=== PATIENT | male | born 1960 | race Caucasian/White ===

== ENCOUNTER 2020-03-25 18:19 | Inpatient (IN) | payer OTHER ==
[~2020-03-25] VITALS: Ht 190.5 cm; Wt 68.5 kg
[~2020-03-25 18:19] MED LIST: ACAMPROSATE CA333 MG; ATIVAN1 M1; FLUNISOLIDE25 ML; FOLIC ACID1 MG; GABAPENTIN300 MG; QUETIAPINE FUM200 MG; SEROQUEL400 MG; SERTRALINE HCL100 MG; ZYRTEC10 M3
== END 2020-03-30 12:47 | disposition home or self-care (01) | DRG 638 ==
LOC: ER 18:19 → MEDI 03-26 12:11
PROVIDERS: ADMIT Internal Medicine; ATTEND Internal Medicine
DX: E11.10 Type 2 diabetes mellitus with ketoacidosis without coma (principal); E87.1 Hypo-osmolality and hyponatremia; N17.9 Acute kidney failure, unspecified; K86.1 Other chronic pancreatitis; E87.2 Acidosis; Z79.4 Long term (current) use of insulin; F10.20 Alcohol dependence, uncomplicated; D69.6 Thrombocytopenia, unspecified; E03.9 Hypothyroidism, unspecified; E86.0 Dehydration; K70.0 Alcoholic fatty liver; Z20.828 Contact with and (suspected) exposure to other viral communicable diseases; E87.6 Hypokalemia; K86.89 Other specified diseases of pancreas

== ENCOUNTER 2023-06-19 18:49 | Emergency (ER) | payer OTHER ==
[~2023-06-19] VITALS: Ht 188 cm; Wt 86.2 kg
[2023-06-20 00:17] LABS: HEMATOCRIT 40.9 % (39.0-48.0); HEMOGLOBIN 13.5 g/dL (13-16.00); MEAN CELL VOLUME 95.2 fL (80.0-100.00); MEAN CORPUSCULAR HEMOGLOBIN 31.3 pg (27.00-32.0); MEAN CORPUSCULAR HGB CONC 32.9 g/dl (32.0-36.0); PLATELET COUNT 195 K/uL (150-450)
[2023-06-20 00:33] LABS: ALBUMIN 3.8 gm/dL (3.4-5.0); BILIRUBIN TOTAL 0.61 mg/dL (0.3-1.2); CALCIUM 8.6 mg/dL (8.5-10.1); CREATININE SERUM 0.88 mg/dL (0.70-1.30); GFR 88.33; GLOBULINA 3.2 G/DL (2.4-3.5); POTASSIUM 3.94 mEq/L (3.5-5.1)
[2023-06-20 18:06] LABS: INR 0.99; PARTIAL THROMBOPLASTIN TIME 29.2 SECONDS (22.0-34.0); PROTHROMBIN TIME 10.4 SECONDS (9.0-11.5)
== END 2023-06-20 19:01 | disposition designated cancer center or children's hospital (05) ==
LOC: ER 18:49
PROVIDERS: Emergency Medicine; General Practice
DX: S72.092A Other fracture of head and neck of left femur, initial encounter for closed fracture (principal); X58.XXXA Exposure to other specified factors, initial encounter; Y93.9 Activity, unspecified; Y92.9 Unspecified place or not applicable; Y99.9 Unspecified external cause status; F10.129 Alcohol abuse with intoxication, unspecified; Z91.013 Allergy to seafood
CPT/HCPCS: 36415; 71045; 73502; 73560; 96365; 96372; 99285; J1885; J2270

== ENCOUNTER 2024-11-05 09:51 | Inpatient (IN) | payer OTHER ==
[~2024-11-05] VITALS: Ht 182.9 cm; Wt 77.1 kg
[~2024-11-05 09:51] MED LIST changes: +ADULT LOW DOSE81 M1 PO; +CREON DR 36,001 EACH; +FOLIC ACID0.8 M1; +GABAPENTIN800 M1 PO; +HYDROXYZIN10 MG/5 ML PO; +INSULIN SYRING1 EA29; +LANTUS SOL100 UNIT/1; +THIAMINE HCL25 GM; +ZOLOFT100 MG PO
[2024-11-05] MEDS ORDERED: PIPERACILLIN/TAZOBACTAM SODIUM 2.25 GM VIAL IV ONE (10:15)
[2024-11-05] MEDS ORDERED: 0.9 % SODIUM CHLORIDE 1,000 ML IV ONE (10:15)
[2024-11-05] MEDS ORDERED: NOREPINEPHRINE BITARTRATE 1 MG/ML AMPUL IV ONE (10:15)
[2024-11-05 10:17] LABS: ABG pCO2 20.8 mmHg (35-45); BASE EXCESS -30.7 mmol/l; BICARBONATE 3.2 mmol/l (23-25); SaO2 99.9 %; Tco2 3.8 mmol/l
[2024-11-05 10:23] LABS: ABG PO2 772.1 mmHg (80-100); allen test SATISFACTORY; o2 100 %; puncture site BRADIAL LEFT
[2024-11-05 10:24] LABS: ABG PH 6.806 (7.35-7.45)
--- NOTE | 2024-11-05 10:34 | NUR ---
PACIENTE TRAIDO EN AMBULANCIA EL MISMO EN ESTADO COMATOSO CON RESPUESTA A ESTIMULOS DE DOLOR. PARAMEDICOS REFIEREN QUE EL MISMO FUE ENCONTRADO EN DASH CASA EN ESTADO INFRAHUMANO REFIEREN QUE FUE VECINA QUIEN LLAMO A LOS PARAMEDICOS. SE OBSERVA EL MISMO CON TAQUICARD Y HIPOTENSO Y CON DIFICULTAD PARA RESPIRAR. SE PASA DE INMEDIATO A AREA DE CRITICO SE CONECTA A MONITOR CARDIACO Y OXIMETRIA DE PULSO. SE INTENTA CANALIZAR EN VARIOS OCASIONES Y NO SE LOGRA. PERSONAL DE ANESTECIA REAL ENTUBA PACIENTE A LAS 9:50AM CON TUBO 8.0 Y ES FIJADO EN 24 EN COMISURA LABIAL. 10:00AM: DR. LEGGETT ES CONSULTA PARA LINEA CENTRA EL MISMO COLOCA LINEA CENTRA FEMORAL LADO DERECHO. SE ADMINITRA MEDICAMENTOS ANT ORDEN VERBAL DE DR. URENA. PERSONAL DE TERAPIA TYLER PACIENTE CONECTA A VENTILADOR (PARAMETROS EN ORDEN). SE MANJINDER MUESTRAS DE LABORATORIO ORDENAS. SE INSERTA KO # [phone] BAJO MEDIDAS ESTERIL NO SE OBSERVA RETORNO URINARIO. PENDIENTEA A PLACA Y ESTUDIO
[2024-11-05 10:36] LABS: HEMATOCRIT 42.8 % (39.0-48.0); MEAN CORPUSCULAR HEMOGLOBIN 31.8 pg (27.00-32.0); MEAN CORPUSCULAR HGB CONC 30.3 g/dl (32.0-36.0); PLATELET COUNT 352 K/uL (150-450); RED BLOOD COUNT 4.08 M/uL (4.00-6.00); RED CELL DISTRIBUTION WIDTH 14.2 % (11.5-14.5)
--- NOTE | 2024-11-05 10:40 | NUR ---
AL MOMENTO DEL TRIAGE PACIENTE SIN IDENTIFICACION Y SIN CAPAZ DE CHAR HISTORIAL
[2024-11-05] MEDS ORDERED: MIDAZOLAM HCL 50 MG in 0.9 % SODIUM CHLORIDE 50 ML IV SCH ×2 (11:00→17:45)
[2024-11-05] MEDS ORDERED: SODIUM BICARBONATE 1 MEQ/ML DISP.SYRIN 50ML IV ONE (11:00)
--- NOTE | 2024-11-05 11:01 | NUR ---
DORA DE QUERRELA [phone] [facility] [id number]
[2024-11-05 11:11] LABS: BILIRUBIN TOTAL 0.59 mg/dL (0.3-1.2); CREATININE SERUM 3.84 mg/dL (0.70-1.30); GFR 16.08; GLOBULINA 4.4 G/DL (2.4-3.5); MAGNESIUM 2.7 mg/dL (1.8-2.4); TOTAL PROTEIN 7.4 gm/dL (6.4-8.2)
[2024-11-05 11:17] LABS: INR 1.89
[2024-11-05 11:22] LABS: PARTIAL THROMBOPLASTIN TIME 59.2 SECONDS (22.0-34.0); PROTHROMBIN TIME 19.7 SECONDS (9.0-11.5)
[2024-11-05 12:14] LABS: PHOSPHOROUS 9.8 mg/dL (2.5-4.9)
[2024-11-05 12:15] LABS: POTASSIUM 6.19 mEq/L (3.5-5.1)
[2024-11-05] MEDS ORDERED: CALCIUM GLUCONATE 100 MG/ML VIAL IV ONE (12:15)
[2024-11-05] MEDS ORDERED: INSULIN REGULAR, HUMAN 100 UNITS in 0.9 % SODIUM CHLORIDE 100 ML IV SCH (12:30)
[2024-11-05 12:34] LABS: D DIMER 1.88 MG/L
[2024-11-05 13:10] LABS: ABG pCO2 25.8 mmHg (35-45); BASE EXCESS -28.3 mmol/l; BICARBONATE 4.6 mmol/l (23-25); SaO2 99.9 %; Tco2 5.4 mmol/l
[2024-11-05] MEDS ORDERED: SODIUM BICARBONATE 100 MEQ in SODIUM CHLORIDE 0.45 % 1,000 ML IV SCH (13:15)
[2024-11-05 14:29] LABS: ABG PO2 677.9 mmHg (80-100); o2 100 %
[2024-11-05 14:30] LABS: ABG PH 6.866 (7.35-7.45); allen test SATISFACTORY; puncture site BRADIAL LEFT
[2024-11-05 14:43] LABS: CALCIUM 8.2 mg/dL (8.5-10.1); CREATININE SERUM 3.56 mg/dL (0.70-1.30); GFR 17.55; POTASSIUM 5.08 mEq/L (3.5-5.1)
--- NOTE | 2024-11-05 15:24 | NUR ---
MASCULINO EN UNIDAD DE CRITICO #1 EN JOHN POSICION MAS BAJA Y BARANDAS ELEVADAS POR SEGURIDAD. PACIENTE EN ESTADO COMATOSO CON RESPUESTA ESTIMULO DE DOLOR. CONECTADO A MONITOR CARDIACO Y OXIMETRIA DE PULSO. PACIENTE INTUBADO CON TUBO 8.0 FIJADO EN COMISURA LABIAL 24. PARAMETROS DE VENTILADOR VT: 550, FO2%: 50%, MODE: A/C, PEEP: 5, RR:18. EXTREMIDADES SUPERIORES SIN EDEMA. ABDOMEN DEPRESIBLE AL TACTO CON PERISTALSIS PRESENTE. PACIENTE CON SONDA URINARIA COLOCADA A GRAVEDAD EN LA CUAL NO SE OBSERVA EGRESO URINARIO. SE OBSERVA LINEA CENTRAL FEMORAL RT. AL MOMENTO SE OBSERVA DRIP DE 0.9%NSS @ 150 MLS/HR, VERSED 50MG/ 50MLS @ 3 MLS/HR, DRIP DE HUMULIN 100UNITS/ 100MLS @ 6MLS/HR, LEVOPHED 8MG/ 250MLS DW5 @ 27MLS/HR, 0.45% + SODIUM BICARBONATE 100MCG @ 100 MLS/HR. EXTREMIDADES INFERIORES SIN EDEMA. PENDIENTE REALIZAR HEAD CT. PENDIENTE MUESTRAS DE U/A, U/C. PENDIENTE CONSULTAS CON DR CORREA Y DRA LINCOLN. [address] S/V Y SE DOCUMENTAN EN SISTEMA. [address] M[address] DXT, EL MISMO NAY "HI". SE NOTIFICA A DR URENA.
--- NOTE | 2024-11-05 16:17 | NUR ---
SE REALIZA DXT, LECTURA DE GLUCOMETRO "HI".
[2024-11-05 16:50] LABS: URINE APPEARANCE Cloudy; URINE BILIRRUBIN Negative (NEGATIVE); URINE BLOOD Large; URINE COLOR Yellow; URINE LEUKOCYTE Negative; URINE NITRATE Negative; URINE UROBILINOGEN 0.2 E.U./dl
[2024-11-05 16:54] LABS: URINE BACTERIA 405.1 uL (0.0-1933); URINE CAST 13.11 uL (0.0-1.40); URINE EPITHELIAL CELLS 53.9 uL (0.0-38.8); URINE RBC 15.9 uL (0.0-20.8)
[2024-11-05] MEDS ORDERED: INSULIN LISPRO 1,000 UNIT/10 ML UNITS SUBCUTANEO PRN (17:00)
[2024-11-05] MEDS ORDERED: DEXTROSE 50 % IN WATER 0.5 G/ML DISP.SYRIN IV PRN (17:00)
--- NOTE | 2024-11-05 17:19 | NUR ---
SE REALIZA DXT, LECTURA DE GLUCOMETRO "HI". SE NOTIFICA A DRA LINCOLN QUIEN ORDENA POR LLAMADA TELEFONICA REALIZAR MUESTRA DE LABORATORIO BMP Y CONTINUAR CON DRIP DE INSULINA @ 6ML/HR.
[2024-11-05] MEDS ORDERED: 0.9 % SODIUM CHLORIDE 1,000 ML IV SCH ×2 (17:45)
[2024-11-05] MEDS ORDERED: INSULIN REGULAR HUMAN 100 UNIT IV SCH (17:45)
[2024-11-05] MEDS ORDERED: NOREPINEPHRINE BITARTRATE 8 MG in DEXTROSE 5 % IN WATER 250 ML IV SCH (17:45)
[2024-11-05] MEDS ORDERED: MORPHINE SULFATE 2 MG/ML CARTRIDGE IV PRN (17:45)
[2024-11-05] MEDS ORDERED: ACETAMINOPHEN 650 MG SUPP.RECT RECTAL PRN (17:45)
[2024-11-05] MEDS ORDERED: ONDANSETRON HCL 4 MG in DEXTROSE 5 % IN WATER 50 ML IV PRN (17:45)
[2024-11-05] MEDS ORDERED: PIPERACILLIN/TAZOBACTAM SODIUM 2.25 GM in DEXTROSE 5 % IN WATER 50 ML IV SCH (18:00)
[2024-11-05 18:07] LABS: URINE GLUCOSE >=1000 MG/DL (NEGATIVE); URINE KETONE 40 (NEGATIVE); URINE PROTEIN 300 (NEGATIVE)
[2024-11-05 19:18] VITALS: BP 91/57; O2SAT 100
[2024-11-05 19:28] LABS: CALCIUM 7.7 mg/dL (8.5-10.1); CREATININE SERUM 3.64 mg/dL (0.70-1.30); GFR 17.1; POTASSIUM 3.79 mEq/L (3.5-5.1)
[2024-11-05 19:42] LABS: ALBUMIN 2.5 gm/dL (3.4-5.0); BILIRUBIN TOTAL 0.69 mg/dL (0.3-1.2); CALCIUM 7.3 mg/dL (8.5-10.1); CREATININE SERUM 3.62 mg/dL (0.70-1.30); GFR 17.21; POTASSIUM 3.83 mEq/L (3.5-5.1); TOTAL PROTEIN 5.5 gm/dL (6.4-8.2)
[2024-11-05] MEDS ORDERED: POLYVINYL ALCOHOL 15 ML DROPS OP SCH (19:54)
[2024-11-05] MEDS ORDERED: CHLORHEXIDINE GLUCONATE 15ML BRUSH KIT MM SCH (19:54)
[2024-11-05 20:00] VITALS: BP 97/57; O2SAT 100
[2024-11-05 20:44] LABS: CKMB 63.1 NG/ML (0.5-3.6)
[2024-11-05 21:00] VITALS: BP 87/62; O2SAT 100
[2024-11-05 22:02] VITALS: BP 106/62; O2SAT 100
[2024-11-05 23:37] VITALS: BP 114/65; O2SAT 100
[2024-11-06] VITALS (19 sets, daily range): BP systolic 89–132; BP diastolic 57–82; O2SAT 95–100
[2024-11-06 03:52] LABS: CKMB 42.7 NG/ML (0.5-3.6)
[2024-11-06 06:53] LABS: ALBUMIN 2.2 gm/dL (3.4-5.0); BILIRUBIN TOTAL 0.44 mg/dL (0.3-1.2); BILIRUBIN,CONJUGATED 0.22 mg/dL (0.0-0.2); BILIRUBIN,UNCONJUGATED 0.22 mg/dL (0.0-0.6); CALCIUM 7.4 mg/dL (8.5-10.1); CHOL HDL RATIO 3.7 (0-5.0); GLOBULINA 2.8 G/DL (2.4-3.5)
[2024-11-06 07:03] LABS: C-REACTIVE PROTEIN 16.8 MG/DL (0.00-0.29); GFR 15.04
[2024-11-06 07:04] LABS: CREATININE SERUM 4.07 mg/dL (0.70-1.30); POTASSIUM 2.92 mEq/L (3.5-5.1)
[2024-11-06 07:07] LABS: HEMATOCRIT 34.5 % (39.0-48.0); HEMOGLOBIN 12.1 g/dL (13-16.00); MEAN CELL VOLUME 93.2 fL (80.0-100.00); MEAN CORPUSCULAR HEMOGLOBIN 32.7 pg (27.00-32.0); MEAN CORPUSCULAR HGB CONC 35.1 g/dl (32.0-36.0); PLATELET COUNT 158 K/uL (150-450); RED BLOOD COUNT 3.71 M/uL (4.00-6.00); RED CELL DISTRIBUTION WIDTH 14.1 % (11.5-14.5)
[2024-11-06 07:08] LABS: CKMB 35.9 NG/ML (0.5-3.6)
[2024-11-06 07:30] LABS: INR 3.14
[2024-11-06 07:43] LABS: PARTIAL THROMBOPLASTIN TIME 38.2 SECONDS (22.0-34.0); PROTHROMBIN TIME 31.4 SECONDS (9.0-11.5)
[2024-11-06] MEDS ORDERED: POTASSIUM CHLORIDE/NACL 0.9% 1,000 ML IV STA (07:47)
[2024-11-06 07:51] LABS: URINE APPEARANCE Cloudy; URINE BILIRRUBIN Negative (NEGATIVE); URINE BLOOD Large; URINE COLOR Yellow; URINE LEUKOCYTE Negative; URINE NITRATE Negative; URINE UROBILINOGEN 0.2 E.U./dl
[2024-11-06 07:54] LABS: URINE BACTERIA 227.6 uL (0.0-1933); URINE CAST 4.12 uL (0.0-1.40); URINE RBC 11.9 uL (0.0-20.8); URINE WBC 11.3 uL (0.0-23.2)
[2024-11-06 08:09] LABS: ERYTHROCYTE SEDIMENTATION RATE 14 mm/hr
[2024-11-06] MEDS ORDERED: POTASSIUM CHLORIDE/NACL 0.9% 1,000 ML IV SCH (08:15)
[2024-11-06] MEDS ORDERED: INSULIN REGULAR, HUMAN 1,000 UNIT/10 ML UNITS IV SCH (08:15)
[2024-11-06 08:34] LABS: ABG PH 7.393 (7.35-7.45); ABG PO2 176.9 mmHg (80-100); ABG pCO2 28.2 mmHg (35-45); BASE EXCESS -6.4 mmol/l; BICARBONATE 16.8 mmol/l (23-25); SaO2 99.5 %; Tco2 17.7 mmol/l
[2024-11-06 08:42] LABS: URINE GLUCOSE >=1000 MG/DL (NEGATIVE); URINE KETONE 40 (NEGATIVE); URINE PROTEIN 300 (NEGATIVE)
[2024-11-06 08:43] LABS: URINE CRYSTALS FEW /HPF
[2024-11-06] MEDS ORDERED: INSULIN REGULAR, HUMAN 100 UNITS in 0.9 % SODIUM CHLORIDE 100 ML IV SCH (08:45)
[2024-11-06] MEDS ORDERED: ENOXAPARIN SODIUM 40 MG/0.4 ML SYRINGE SUBCUTANEO SCH (09:00)
[2024-11-06] MEDS ORDERED: PANTOPRAZOLE SODIUM 40 MG in 0.9 % SODIUM CHLORIDE 8 ML IV PUSH SCH (09:00)
[2024-11-06 09:26] LABS: allen test SATISFACTORY; o2 50 %; puncture site RADIAL LEFT
[2024-11-06] MEDS ORDERED: 0.9 % SODIUM CHLORIDE 1,000 ML IV SCH (09:45)
[2024-11-06] MEDS ORDERED: PIPERACILLIN/TAZOBACTAM SODIUM 2.25 GM in 0.9 % SODIUM CHLORIDE 50 ML IV SCH (12:00)
[2024-11-06] MEDS ORDERED: SODIUM BICARBONATE 1 MEQ/ML DISP.SYRIN 50ML IV SCH (13:15)
[2024-11-06] MEDS ORDERED: POTASSIUM CHLORIDE/D5-0.9%NACL 1,000 ML IV SCH (14:00)
[2024-11-06 15:11] LABS: CALCIUM 7.4 mg/dL (8.5-10.1)
[2024-11-06 15:49] LABS: CREATININE SERUM 4.33 mg/dL (0.70-1.30)
[2024-11-06 15:52] LABS: PHOSPHOROUS 0.4 mg/dL (2.5-4.9); POTASSIUM 2.89 mEq/L (3.5-5.1)
[2024-11-06 15:53] LABS: MAGNESIUM 1.1 mg/dL (1.8-2.4)
[2024-11-06] MEDS ORDERED: SODIUM BICARBONATE 50MEQ/50ML VIAL IV SCH (17:00)
[2024-11-06] MEDS ORDERED: POTASSIUM CHLORIDE/D5-0.45NACL 1,000 ML IV SCH (17:00)
[2024-11-06] MEDS ORDERED: POTASSIUM PHOS,M-BASIC-D-BASIC 3 MM/ML VIAL IV NR (17:00)
[2024-11-06] MEDS ORDERED: MAGNESIUM SULFATE 50% 1,000 MG/2 ML VIAL IM NR (17:00)
[2024-11-06] MEDS ORDERED: MIDAZOLAM HCL 50 MG in 0.9 % SODIUM CHLORIDE 50 ML IV SCH (22:45)
[2024-11-07] VITALS (18 sets, daily range): BP systolic 84–126; BP diastolic 57–88; O2SAT 100
[2024-11-07] MEDS ORDERED: PROPOFOL 100 ML IV SCH (03:45)
[2024-11-07 06:47] LABS: HEMATOCRIT 27.6 % (39.0-48.0); HEMOGLOBIN 9.7 g/dL (13-16.00); MEAN CELL VOLUME 92.9 fL (80.0-100.00); MEAN CORPUSCULAR HEMOGLOBIN 32.6 pg (27.00-32.0); MEAN CORPUSCULAR HGB CONC 35.1 g/dl (32.0-36.0); RED BLOOD COUNT 2.97 M/uL (4.00-6.00); RED CELL DISTRIBUTION WIDTH 14.9 % (11.5-14.5)
[2024-11-07 06:52] LABS: PLATELET COUNT 100 K/uL (150-450)
[2024-11-07 07:37] LABS: ALBUMIN 1.9 gm/dL (3.4-5.0); BILIRUBIN TOTAL 0.55 mg/dL (0.3-1.2); GLOBULINA 2.6 G/DL (2.4-3.5); POTASSIUM 3.15 mEq/L (3.5-5.1); TOTAL PROTEIN 4.5 gm/dL (6.4-8.2)
[2024-11-07 07:39] LABS: GFR 12.31
[2024-11-07 07:42] LABS: CALCIUM 7.4 mg/dL (8.5-10.1)
[2024-11-07 07:53] LABS: CREATININE SERUM 4.84 mg/dL (0.70-1.30)
[2024-11-07 08:11] LABS: PH,URINE 6.5 (5.0-8.0); URINE APPEARANCE Cloudy; URINE BILIRRUBIN Negative (NEGATIVE); URINE BLOOD Large; URINE COLOR Yellow; URINE KETONE Negative (NEGATIVE); URINE LEUKOCYTE Trace; URINE NITRATE Negative; URINE PROTEIN >=1000 (NEGATIVE); URINE UROBILINOGEN 0.2 E.U./dl
[2024-11-07 08:14] LABS: URINE BACTERIA 294.9 uL (0.0-1933); URINE CAST 3.97 uL (0.0-1.40); URINE EPITHELIAL CELLS 30.8 uL (0.0-38.8); URINE RBC 404.9 uL (0.0-20.8); URINE WBC 13.6 uL (0.0-23.2)
[2024-11-07 08:34] LABS: URINE GLUCOSE 500 MG/DL (NEGATIVE)
[2024-11-07] MEDS ORDERED: INSULIN NPH HUMAN ISOPHANE 1,000 UNITS/10 ML UNITS SUBCUTANEO STA (10:13)
[2024-11-07] MEDS ORDERED: DEXTROSE 50 % IN WATER 0.5 G/ML DISP.SYRIN IV PRN (10:15)
[2024-11-07] MEDS ORDERED: INSULIN LISPRO 1,000 UNIT/10 ML UNITS SUBCUTANEO PRN (10:15)
[2024-11-07 14:16] LABS: CALCIUM 7.2 mg/dL (8.5-10.1); MAGNESIUM 1.5 mg/dL (1.8-2.4); POTASSIUM 3.54 mEq/L (3.5-5.1)
[2024-11-07 14:23] LABS: GFR 11.32
[2024-11-07 14:24] LABS: CREATININE SERUM 5.19 mg/dL (0.70-1.30)
[2024-11-07 14:27] LABS: PHOSPHOROUS 1.3 mg/dL (2.5-4.9)
[2024-11-07] MEDS ORDERED: POTASSIUM CHLORIDE/D5-0.45NACL 1,000 ML IV SCH (15:30)
[2024-11-07 15:54] LABS: ABG PH 7.368 (7.35-7.45); ABG PO2 187.2 mmHg (80-100); ABG pCO2 26.9 mmHg (35-45); BASE EXCESS -8.4 mmol/l; BICARBONATE 15.1 mmol/l (23-25); SaO2 99.5 %; Tco2 15.9 mmol/l
[2024-11-07 15:55] LABS: allen test SATISFACTORY; o2 60 %; puncture site RADIAL RIGHT
[2024-11-07] MEDS ORDERED: MAGNESIUM SULFATE IN WATER 50 ML IV ONE (20:30)
[2024-11-07] MEDS ORDERED: INSULIN NPH HUMAN ISOPHANE 1,000 UNITS/10 ML UNITS SUBCUTANEO SCH (21:00)
[2024-11-08] VITALS (13 sets, daily range): BP systolic 93–1115; BP diastolic 1–87; O2SAT 99–100
[2024-11-08 06:18] LABS: HEMATOCRIT 26.7 % (39.0-48.0); HEMOGLOBIN 9.4 g/dL (13-16.00); MEAN CELL VOLUME 93.6 fL (80.0-100.00); MEAN CORPUSCULAR HEMOGLOBIN 32.8 pg (27.00-32.0); MEAN CORPUSCULAR HGB CONC 35.1 g/dl (32.0-36.0); RED BLOOD COUNT 2.85 M/uL (4.00-6.00); RED CELL DISTRIBUTION WIDTH 14.8 % (11.5-14.5)
[2024-11-08 06:26] LABS: PLATELET COUNT 72 K/uL (150-450)
[2024-11-08 06:57] LABS: CALCIUM 6.9 mg/dL (8.5-10.1); POTASSIUM 3.74 mEq/L (3.5-5.1)
[2024-11-08 07:01] LABS: GFR 10.93
[2024-11-08 07:03] LABS: CREATININE SERUM 5.35 mg/dL (0.70-1.30)
[2024-11-08 08:59] LABS: ABG PH 7.361 (7.35-7.45); ABG PO2 217.1 mmHg (80-100); ABG pCO2 27.2 mmHg (35-45); BASE EXCESS -8.6 mmol/l; BICARBONATE 15.1 mmol/l (23-25); SaO2 99.7 %; Tco2 15.9 mmol/l
[2024-11-08 14:13] LABS: MAGNESIUM 1.8 mg/dL (1.8-2.4); PHOSPHOROUS 2.5 mg/dL (2.5-4.9)
[2024-11-08 16:17] LABS: allen test SATISFACTORY; o2 50 %; puncture site RADIAL RIGHT
[2024-11-08] MEDS ORDERED: SODIUM CL 0.9% 50 ML IV.SOLN IV ONE (17:06)
[2024-11-08] MEDS ORDERED: POTASSIUM PHOS,M-BASIC-D-BASIC 18 MM in 0.9 % SODIUM CHLORIDE 250 ML IV SCH (20:30)
[2024-11-09] VITALS (12 sets, daily range): BP systolic 119–131; BP diastolic 81–93; O2SAT 99–100
[2024-11-09] MEDS ORDERED: SODIUM CL 0.9% 50 ML IV.SOLN IV ONE ×2 (00:36→20:56)
[2024-11-09 06:37] LABS: HEMATOCRIT 25.3 % (39.0-48.0); MEAN CELL VOLUME 93.5 fL (80.0-100.00); MEAN CORPUSCULAR HGB CONC 34.9 g/dl (32.0-36.0); RED BLOOD COUNT 2.71 M/uL (4.00-6.00); RED CELL DISTRIBUTION WIDTH 15.2 % (11.5-14.5)
[2024-11-09 06:53] LABS: HEMOGLOBIN 8.8 g/dL (13-16.00); MEAN CORPUSCULAR HEMOGLOBIN 32.4 pg (27.00-32.0); PLATELET COUNT 60 K/uL (150-450)
[2024-11-09 07:24] LABS: ALBUMIN 1.7 gm/dL (3.4-5.0); BILIRUBIN TOTAL 0.66 mg/dL (0.3-1.2); CALCIUM 7.5 mg/dL (8.5-10.1); GLOBULINA 2.7 G/DL (2.4-3.5); MAGNESIUM 1.9 mg/dL (1.8-2.4); POTASSIUM 4.14 mEq/L (3.5-5.1); TOTAL PROTEIN 4.4 gm/dL (6.4-8.2)
[2024-11-09 07:54] LABS: GFR 10.04
[2024-11-09 07:55] LABS: CREATININE SERUM 5.76 mg/dL (0.70-1.30)
[2024-11-09 10:03] LABS: ABG PH 7.367 (7.35-7.45); ABG PO2 136.1 mmHg (80-100); ABG pCO2 23.6 mmHg (35-45); BASE EXCESS -9.9 mmol/l; BICARBONATE 13.3 mmol/l (23-25); SaO2 98.8 %
[2024-11-09 12:22] LABS: allen test SATISFACTORY; o2 35 %; puncture site RADIAL LEFT
[2024-11-09] MEDS ORDERED: LORazepam 2 MG/ML VIAL IV PRN (13:00)
[2024-11-09] MEDS ORDERED: POTASSIUM PHOS,M-BASIC-D-BASIC 18 MM in 0.9 % SODIUM CHLORIDE 250 ML IV NR (14:00)
[2024-11-09 15:34] LABS: PROTHROMBIN TIME 10.9 SECONDS (9.0-11.5)
[2024-11-09] MEDS ORDERED: HEPARIN SODIUM,PORCINE 5,000 UNITS/ML VIAL ONE (19:41)
[2024-11-09] MEDS ORDERED: PIPERACILLIN/TAZOBACTAM SODIUM 2.25 GM in 0.9 % SODIUM CHLORIDE 50 ML IV SCH (21:00)
[2024-11-10] VITALS (11 sets, daily range): BP systolic 112–135; BP diastolic 74–90; O2SAT 100
[2024-11-10 06:57] LABS: ALBUMIN 1.7 gm/dL (3.4-5.0); BILIRUBIN TOTAL 0.62 mg/dL (0.3-1.2); CALCIUM 7.7 mg/dL (8.5-10.1); GFR 13.66; GLOBULINA 2.5 G/DL (2.4-3.5); MAGNESIUM 1.6 mg/dL (1.8-2.4); PHOSPHOROUS 2.8 mg/dL (2.5-4.9); POTASSIUM 3.96 mEq/L (3.5-5.1); TOTAL PROTEIN 4.2 gm/dL (6.4-8.2)
[2024-11-10 07:07] LABS: HEMATOCRIT 23.8 % (39.0-48.0); MEAN CELL VOLUME 92.5 fL (80.0-100.00); MEAN CORPUSCULAR HGB CONC 35.6 g/dl (32.0-36.0); RED BLOOD COUNT 2.57 M/uL (4.00-6.00); RED CELL DISTRIBUTION WIDTH 15.2 % (11.5-14.5)
[2024-11-10 07:07] LABS: hav igm Negative (Negative); hcv Non Reactive (Non Reactive); hep b c Negative (Negative); hep b s ag Negative (Negative)
[2024-11-10 07:12] LABS: CREATININE SERUM 4.41 mg/dL (0.70-1.30)
[2024-11-10 08:17] LABS: HEMOGLOBIN 8.5 g/dL (13-16.00); PLATELET COUNT 56 K/uL (150-450)
[2024-11-10 09:16] LABS: ABG PH 7.356 (7.35-7.45); ABG PO2 76.4 mmHg (80-100); ABG pCO2 31.4 mmHg (35-45); BASE EXCESS -7.1 mmol/l; BICARBONATE 17.2 mmol/l (23-25); SaO2 94.1 %; Tco2 18.1 mmol/l
[2024-11-10] MEDS ORDERED: MAGNESIUM SULFATE IN WATER 2 GM/50 ML PIGGYBAG IV NR (10:00)
[2024-11-10 10:25] LABS: allen test SATISFACTORY; o2 35 %; puncture site RADIAL LEFT
[2024-11-10 11:36] LABS: ABG PH 7.426 (7.35-7.45); ABG PO2 133.5 mmHg (80-100); BASE EXCESS -5.8 mmol/l; BICARBONATE 16.7 mmol/l (23-25); Tco2 17.5 mmol/l
[2024-11-10] MEDS ORDERED: POTASSIUM PHOS,M-BASIC-D-BASIC 3 MM/ML VIAL IV ONE (12:00)
[2024-11-10 13:03] LABS: allen test SATISFACTORY; o2 35 %; puncture site RADIAL LEFT
[2024-11-10] MEDS ORDERED: METHYLPREDNISOLONE SOD SUCC 40 MG VIAL IV STA (13:17)
[2024-11-10] MEDS ORDERED: RACEPINEPHRINE HCL 0.5 ML AMPUL IH NR (14:30)
[2024-11-10] MEDS ORDERED: ALBUTEROL SULFATE 3 ML/2.5 MG AMPUL.NEB IH SCH (17:00)
[2024-11-10 19:05] LABS: ABG PH 7.351 (7.35-7.45); ABG PO2 107.2 mmHg (80-100)
[2024-11-10 19:06] LABS: BASE EXCESS -8.9 mmol/l; SaO2 97.6 %; Tco2 15.8 mmol/l; allen test SATISFACTORY; o2 40 %; puncture site RADIAL RIGHT
[2024-11-10 19:09] LABS: ABG pCO2 27.7 mmHg (35-45)
[2024-11-10] MEDS ORDERED: SODIUM CL 0.9% 50 ML IV.SOLN IV ONE ×2 (20:45→23:51)
[2024-11-10] MEDS ORDERED: METHYLPREDNISOLONE SOD SUCC 40 MG VIAL IV SCH (21:00)
[2024-11-11 04:00] VITALS: BP 109/71; O2SAT 100
[2024-11-11 06:47] LABS: HEMATOCRIT 25.3 % (39.0-48.0); MEAN CELL VOLUME 93.5 fL (80.0-100.00); MEAN CORPUSCULAR HGB CONC 35.4 g/dl (32.0-36.0); RED CELL DISTRIBUTION WIDTH 15.2 % (11.5-14.5)
[2024-11-11 07:16] LABS: CALCIUM 7.8 mg/dL (8.5-10.1); GFR 10.39; POTASSIUM 4.82 mEq/L (3.5-5.1)
[2024-11-11 07:18] LABS: HEMOGLOBIN 8.9 g/dL (13-16.00); MEAN CORPUSCULAR HEMOGLOBIN 32.9 pg (27.00-32.0); PLATELET COUNT 74 K/uL (150-450)
[2024-11-11 07:23] LABS: CREATININE SERUM 5.59 mg/dL (0.70-1.30)
[2024-11-11 07:32] VITALS: BP 127/87; O2SAT 99
[2024-11-11] MEDS ORDERED: levoFLOXacin IN DEXTROSE 5 % 5 MG/ML PIGGYBAG IV NR (09:00)
[2024-11-11 12:00] VITALS: BP 119/81; O2SAT 100
[2024-11-11 15:30] VITALS: BP 118/80; O2SAT 98
[2024-11-11] MEDS ORDERED: HEPARIN SODIUM,PORCINE 5,000 UNITS/ML VIAL ONE (16:24)
[2024-11-11 20:00] VITALS: BP 111/72; O2SAT 100
[2024-11-11 23:27] VITALS: BP 113/83; O2SAT 100
[2024-11-12 04:00] VITALS: BP 111/69; O2SAT 99
[2024-11-12 07:41] VITALS: BP 119/76; O2SAT 100
[2024-11-12] MEDS ORDERED: INSULIN GLARGINE,HUM.REC.ANLOG 1,000 UNITS/10 ML UNITS SUBCUTANEO SCH (09:00)
[2024-11-12 11:58] VITALS: BP 123/78; O2SAT 100
[2024-11-12 16:06] VITALS: BP 119/76; O2SAT 98
[2024-11-12 20:00] VITALS: BP 131/84; O2SAT 99
[2024-11-12] MEDS ORDERED: TRAZODONE HCL 50 MG TABLET PO SCH (21:00)
[2024-11-12] MEDS ORDERED: Dextrose ORAL GEL 37.5GM GEL PO ONE (21:59)
[2024-11-12] MEDS ORDERED: DEXTROSE 10 % IN WATER 1,000 ML IV SCH (22:15)
[2024-11-12 23:16] VITALS: BP 131/84; O2SAT 100
[2024-11-13] VITALS (8 sets, daily range): BP systolic 86–142; BP diastolic 66–84; O2SAT 97–100
[2024-11-13 08:25] LABS: BILIRUBIN TOTAL 0.29 mg/dL (0.3-1.2); CALCIUM 7.7 mg/dL (8.5-10.1); GFR 11.03; GLOBULINA 2.6 G/DL (2.4-3.5); POTASSIUM 4.5 mEq/L (3.5-5.1); TOTAL PROTEIN 4.6 gm/dL (6.4-8.2)
[2024-11-13 08:44] LABS: CREATININE SERUM 5.31 mg/dL (0.70-1.30)
[2024-11-13 08:47] LABS: MEAN CELL VOLUME 92.6 fL (80.0-100.00); MEAN CORPUSCULAR HGB CONC 34.7 g/dl (32.0-36.0); PLATELET COUNT 176 K/uL (150-450); RED BLOOD COUNT 2.46 M/uL (4.00-6.00); RED CELL DISTRIBUTION WIDTH 14.6 % (11.5-14.5)
[2024-11-13 08:48] LABS: HEMATOCRIT 22.8 % (39.0-48.0); MEAN CORPUSCULAR HEMOGLOBIN 32.1 pg (27.00-32.0)
[2024-11-13 08:53] LABS: HEMOGLOBIN 7.9 g/dL (13-16.00)
[2024-11-13] MEDS ORDERED: levoFLOXacin IN DEXTROSE 5 % 500MG/100ML PIGGYBAG IV SCH (09:00)
[2024-11-13] MEDS ORDERED: INSULIN GLARGINE,HUM.REC.ANLOG 1,000 UNITS/10 ML UNITS SUBCUTANEO SCH (09:00)
[2024-11-13] MEDS ORDERED: INSULIN LISPRO 1,000 UNIT/10 ML UNITS SUBCUTANEO PRN (14:15)
[2024-11-13] MEDS ORDERED: hydrOXYzine HCL 25 MG TABLET PO SCH (17:00)
[2024-11-13] MEDS ORDERED: GABAPENTIN 300 MG CAPSULE PO SCH (17:00)
[2024-11-13] MEDS ORDERED: FAMOtidine 20 MG TABLET PO SCH (17:00)
[2024-11-13] MEDS ORDERED: GUAIFENESIN 200 MG/10 ML BLIST.PACK PO SCH (18:00)
[2024-11-13] MEDS ORDERED: MELATONIN 5 MG TABLET PO SCH (21:00)
[2024-11-14 00:34] VITALS: BP 122/65; O2SAT 92
[2024-11-14 07:23] LABS: T4 TOTAL 2.11 UG/DL (4.5-12.1)
[2024-11-14 07:43] LABS: TSH 34.9 uIU/mL (0.358-3.74)
[2024-11-14 08:05] VITALS: BP 120/74
[2024-11-14 09:52] LABS: MEAN CELL VOLUME 93.2 fL (80.0-100.00); MEAN CORPUSCULAR HGB CONC 34.2 g/dl (32.0-36.0); PLATELET COUNT 200 K/uL (150-450); RED BLOOD COUNT 2.68 M/uL (4.00-6.00); RED CELL DISTRIBUTION WIDTH 14.6 % (11.5-14.5)
[2024-11-14 09:56] LABS: HEMOGLOBIN 8.5 g/dL (13-16.00); MEAN CORPUSCULAR HEMOGLOBIN 31.7 pg (27.00-32.0)
[2024-11-14 10:58] LABS: CALCIUM 7.5 mg/dL (8.5-10.1); GFR 8.97; POTASSIUM 4.36 mEq/L (3.5-5.1)
[2024-11-14 11:07] LABS: CREATININE SERUM 6.35 mg/dL (0.70-1.30)
[2024-11-14] MEDS ORDERED: SERTRALINE HCL 100 MG TABLET PO NR (11:30)
[2024-11-14] MEDS ORDERED: GABAPENTIN 100 MG CAPSULE PO SCH (13:00)
[2024-11-14] MEDS ORDERED: hydrOXYzine HCL 50 MG TABLET PO SCH (13:00)
[2024-11-14 16:44] VITALS: BP 147/100; O2SAT 97
[2024-11-14] MEDS ORDERED: HEPARIN SODIUM,PORCINE 5,000 UNITS/ML VIAL ONE (16:50)
[2024-11-14] MEDS ORDERED: MEROPENEM 500 MG/VIAL VIAL IV SCH (17:00)
[2024-11-14] MEDS ORDERED: HEPARIN SODIUM,PORCINE 5,000 UNITS/ML VIAL IV PRN (17:00)
[2024-11-14] MEDS ORDERED: PROPRANOLOL HCL 40 MG TABLET PO SCH (17:00)
[2024-11-14 18:25] VITALS: BP 150/100
[2024-11-14] MEDS ORDERED: TRAZODONE HCL 50 MG TABLET PO SCH (21:00)
[2024-11-14 21:15] VITALS: BP 144/83; O2SAT 96
[2024-11-14 23:17] LABS: HEMATOCRIT 29.2 % (39.0-48.0); MEAN CELL VOLUME 93.2 fL (80.0-100.00); MEAN CORPUSCULAR HEMOGLOBIN 32.1 pg (27.00-32.0); MEAN CORPUSCULAR HGB CONC 34.5 g/dl (32.0-36.0); PLATELET COUNT 208 K/uL (150-450); RED BLOOD COUNT 3.13 M/uL (4.00-6.00); RED CELL DISTRIBUTION WIDTH 14.3 % (11.5-14.5)
[2024-11-15] VITALS: BP 125/81; O2SAT 95
[2024-11-15 08:06] VITALS: BP 138/83
[2024-11-15] MEDS ORDERED: SERTRALINE HCL 100 MG TABLET PO SCH (09:00)
[2024-11-15] MEDS ORDERED: ACETAMINOPHEN 325 MG TABLET PO PRN (09:30)
[2024-11-15 16:16] VITALS: BP 156/83; O2SAT 97
[2024-11-15 21:24] VITALS: BP 160/85; O2SAT 98
[2024-11-16 02:41] VITALS: BP 144/83; O2SAT 92
[2024-11-16 05:32] LABS: MEAN CELL VOLUME 93.8 fL (80.0-100.00); MEAN CORPUSCULAR HEMOGLOBIN 32.2 pg (27.00-32.0); MEAN CORPUSCULAR HGB CONC 34.3 g/dl (32.0-36.0); PLATELET COUNT 249 K/uL (150-450); RED BLOOD COUNT 3.19 M/uL (4.00-6.00); RED CELL DISTRIBUTION WIDTH 14.3 % (11.5-14.5)
[2024-11-16 05:37] LABS: HEMOGLOBIN 10.3 g/dL (13-16.00)
[2024-11-16 06:05] LABS: ALBUMIN 1.9 gm/dL (3.4-5.0); BILIRUBIN TOTAL 0.39 mg/dL (0.3-1.2); CALCIUM 7.6 mg/dL (8.5-10.1); GFR 10.7; GLOBULINA 2.6 G/DL (2.4-3.5); POTASSIUM 4.36 mEq/L (3.5-5.1); TOTAL PROTEIN 4.5 gm/dL (6.4-8.2)
[2024-11-16 07:50] LABS: CREATININE SERUM 5.45 mg/dL (0.70-1.30)
[2024-11-16 08:58] VITALS: BP 134/79
[2024-11-16] MEDS ORDERED: AMINO ACIDS 1 EACH TABLET PO SCH (13:00)
[2024-11-16 16:55] VITALS: BP 134/80; O2SAT 96
[2024-11-16] MEDS ORDERED: LEVOTHYROXINE SODIUM 100 MCG/VIAL VIAL IV STA (18:14)
[2024-11-16 18:23] LABS: URINE PROT QUANT 24HR 58.4 MG/DL
[2024-11-16 18:53] LABS: URINE PROT QUANT 24 HR 467.2 MG/24HR (42-225)
[2024-11-16 19:01] LABS: CREATININE SERUM 5.45 mg/dL (0.8-1.3)
[2024-11-17 01:00] VITALS: BP 124/81; O2SAT 95
[2024-11-17] MEDS ORDERED: LEVOTHYROXINE SODIUM 100 MCG TABLET PO SCH (06:00)
[2024-11-17] MEDS ORDERED: INSULIN LISPRO 1,000 UNIT/10 ML UNITS SUBCUTANEO SCH (08:00)
[2024-11-17 08:40] VITALS: BP 109/55
[2024-11-17] MEDS ORDERED: TUBERCULIN,PURIF.PROT.DERIV. 10 SKIN.TEST SKIN.TEST ID ONE (10:30)
[2024-11-17] MEDS ORDERED: MORPHINE SULFATE 2 MG/ML CARTRIDGE IV PRN (14:15)
[2024-11-17] MEDS ORDERED: HEPARIN SODIUM,PORCINE 5,000 UNITS/ML VIAL ONE (17:44)
[2024-11-17] MEDS ORDERED: BUPIVACAINE HCL/MPF 0.5% 30ML VIAL ONE (17:45)
[2024-11-17 18:01] VITALS: BP 136/74
[2024-11-17] MEDS ORDERED: levoFLOXacin 500 MG TABLET PO SCH (21:00)
[2024-11-18 02:28] VITALS: BP 133/75; O2SAT 95
[2024-11-18 07:06] LABS: hav igm Negative (Negative); hcv Non Reactive (Non Reactive); hep b c Negative (Negative); hep b s ag Negative (Negative)
[2024-11-18 07:35] LABS: CALCIUM 7.4 mg/dL (8.5-10.1); GFR 11.66; POTASSIUM 4.15 mEq/L (3.5-5.1)
[2024-11-18 08:16] LABS: CREATININE SERUM 5.06 mg/dL (0.70-1.30)
[2024-11-18 10:57] VITALS: BP 131/76
[2024-11-18] MEDS ORDERED: BISMUTH SUBSALICYLATE 262 MG/15 ML BLIST.PACK PO PRN (16:00)
[2024-11-18] MEDS ORDERED: LACTOBACILLUS ACIDOPHILUS 1 CAP CAP PO SCH (17:00)
[2024-11-18 18:36] VITALS: BP 144/85
[2024-11-19 01:12] VITALS: BP 120/72; O2SAT 97
[2024-11-19 08:15] VITALS: BP 122/80; O2SAT 95
[2024-11-19 17:41] VITALS: BP 144/86
[2024-11-20 01:39] VITALS: BP 120/66; O2SAT 96
[2024-11-20 04:48] VITALS: BP 117/73; O2SAT 97
[2024-11-20 08:18] VITALS: BP 128/78; O2SAT 95
[2024-11-20] MEDS ORDERED: GABAPENTIN 300 MG CAPSULE PO SCH (17:00)
[2024-11-20 17:44] VITALS: BP 126/78
[2024-11-21 01:37] VITALS: BP 106/64; O2SAT 96
[2024-11-21 05:26] VITALS: BP 132/80; O2SAT 95
[2024-11-21 06:51] LABS: HEMATOCRIT 27.3 % (39.0-48.0); HEMOGLOBIN 9.5 g/dL (13-16.00); MEAN CELL VOLUME 93.2 fL (80.0-100.00); MEAN CORPUSCULAR HEMOGLOBIN 32.4 pg (27.00-32.0); MEAN CORPUSCULAR HGB CONC 34.8 g/dl (32.0-36.0); PLATELET COUNT 187 K/uL (150-450); RED BLOOD COUNT 2.93 M/uL (4.00-6.00); RED CELL DISTRIBUTION WIDTH 14.4 % (11.5-14.5)
[2024-11-21 06:58] LABS: CALCIUM 7.9 mg/dL (8.5-10.1); CREATININE SERUM 2.73 mg/dL (0.70-1.30); GFR 23.76; POTASSIUM 4.6 mEq/L (3.5-5.1)
[2024-11-21 08:42] VITALS: BP 127/66; O2SAT 97
[2024-11-21] MEDS ORDERED: INSULIN GLARGINE,HUM.REC.ANLOG 1,000 UNITS/10 ML UNITS SUBCUTANEO SCH (09:00)
[2024-11-21] MEDS ORDERED: [UNRECOGNIZED DRUG - MIXTURE] TOP SCH (17:00)
[2024-11-21 18:03] VITALS: BP 162/88
[2024-11-22 00:54] VITALS: BP 102/60
[2024-11-22 06:33] LABS: CALCIUM 7.7 mg/dL (8.5-10.1); CREATININE SERUM 1.6 mg/dL (0.70-1.30); GFR 44.02; POTASSIUM 4.1 mEq/L (3.5-5.1)
[2024-11-22 08:52] VITALS: BP 136/61
== END 2024-11-22 13:14 | disposition designated cancer center or children's hospital (05) | DRG 637 ==
LOC: ER 09:51 → EDBD 10:04 → ICU 18:09 → ICU-2 18:09 → ICU 18:09 → MEDI 18:09 → EDBD 18:09 → ICU 11-06 03:44 → MEDI 11-13 12:04
PROVIDERS: General Practice; Internal Medicine; Internal Medicine Endocrinology, Diabetes & Metabolism; Internal Medicine Infectious Disease; Internal Medicine Nephrology; ADMIT Student in an Organized Health Care Education/Training Program; ATTEND Student in an Organized Health Care Education/Training Program
PROC: BW28ZZZ Computerized Tomography (CT Scan) of Head (ICD-10-PCS; principal; 2024-11-05)
PROC: 5A1945Z Respiratory Ventilation, 24-96 Consecutive Hours (ICD-10-PCS; 2024-11-05)
PROC: 0BH18EZ Insertion of Endotracheal Airway into Trachea, Via Natural or Artificial Opening Endoscopic (ICD-10-PCS; 2024-11-05)
PROC: 06HN33Z Insertion of Infusion Device into Left Femoral Vein, Percutaneous Approach (ICD-10-PCS; 2024-11-08)
PROC: B51CZZA Fluoroscopy of Left Lower Extremity Veins, Guidance (ICD-10-PCS; 2024-11-08)
PROC: B54CZZA Ultrasonography of Left Lower Extremity Veins, Guidance (ICD-10-PCS; 2024-11-08)
PROC: 5A1D70Z Performance of Urinary Filtration, Intermittent, Less than 6 Hours Per Day (ICD-10-PCS; 2024-11-09)
PROC: 3E0F7GC Introduction of Other Therapeutic Substance into Respiratory Tract, Via Natural or Artificial Opening (ICD-10-PCS; 2024-11-10)
PROC: 5A1D70Z Performance of Urinary Filtration, Intermittent, Less than 6 Hours Per Day (ICD-10-PCS; 2024-11-11)
PROC: BT4JZZZ Ultrasonography of Kidneys and Bladder (ICD-10-PCS; 2024-11-12)
PROC: 30233N1 Transfusion of Nonautologous Red Blood Cells into Peripheral Vein, Percutaneous Approach (ICD-10-PCS; 2024-11-13)
PROC: 05HM33Z Insertion of Infusion Device into Right Internal Jugular Vein, Percutaneous Approach (ICD-10-PCS; 2024-11-17)
PROC: B513ZZA Fluoroscopy of Right Jugular Veins, Guidance (ICD-10-PCS; 2024-11-17)
PROC: B543ZZA Ultrasonography of Right Jugular Veins, Guidance (ICD-10-PCS; 2024-11-17)
PROC: 5A1D70Z Performance of Urinary Filtration, Intermittent, Less than 6 Hours Per Day (ICD-10-PCS; 2024-11-21)
DX: E11.10 Type 2 diabetes mellitus with ketoacidosis without coma (principal); A41.9 Sepsis, unspecified organism; K85.90 Acute pancreatitis without necrosis or infection, unspecified; N18.6 End stage renal disease; J96.00 Acute respiratory failure, unspecified whether with hypoxia or hypercapnia; N17.8 Other acute kidney failure; E87.0 Hyperosmolality and hypernatremia; I12.0 Hypertensive chronic kidney disease with stage 5 chronic kidney disease or end stage renal disease; Z99.11 Dependence on respirator [ventilator] status; Z79.4 Long term (current) use of insulin; D72.828 Other elevated white blood cell count; E87.5 Hyperkalemia; E86.0 Dehydration; D64.89 Other specified anemias; E11.22 Type 2 diabetes mellitus with diabetic chronic kidney disease; Z99.2 Dependence on renal dialysis; Z72.0 Tobacco use; E83.39 Other disorders of phosphorus metabolism; I95.9 Hypotension, unspecified; L98.429 Non-pressure chronic ulcer of back with unspecified severity; F43.21 Adjustment disorder with depressed mood; F14.90 Cocaine use, unspecified, uncomplicated